=== PATIENT | male | born 1965 | race Hispanic/Latino ===

== ENCOUNTER 2023-02-15 13:27 | Inpatient (IN) | payer OTHER ==
[~2023-02-15] VITALS: Ht 160 cm; Wt 70.6 kg
[2023-02-15] MEDS ORDERED: 0.9%NACL 1000ML 1,000 ML IV ONE ×2 (14:00→15:00)
[2023-02-15] MEDS ORDERED: ONDANSETRON 4MG INJ IVP ONE (14:00)
[2023-02-15 14:06] LABS: BASOPHILS % (AUTO) 0.1 % (0.0-5.0); HEMATOCRIT 49.6 % (42-54); LYMPHOCYTES % (AUTO) 4.5 % (21.0-51.0); MEAN CORPUSCULAR HEMOGLOBIN 30.1 pg (27.0-33.0); MEAN CORPUSCULAR HGB CONC 33.7 g/dL (32.0-36.0); MEAN CORPUSCULAR VOLUME 89.4 fL (79-99); MONOCYTES % (AUTO) 3.3 % (3.0-13.0); NEUTROPHILS % (AUTO) 91.9 % (40.0-77.0); PLATELET COUNT (AUTO) 149 K/uL (130-400); RED BLOOD CELL COUNT(AUTO) 5.55 MIL/uL (4.50-6.20); RED CELL DISTRIBUTION WIDTH 12.6 % (11.0-15.5); WHITE BLOOD COUNT (AUTO) 9.4 K/uL (4.8-10.8)
[2023-02-15 14:23] LABS: CARBON DIOXIDE 30 mmol/L (21-32); CHLORIDE 98 mmol/L (101-111); CREATININE 1.1 mg/dL (0.5-1.5); GLOMERULAR FILTR. RATE CALC 77 mL/min (>90); GLUCOSE,RANDOM 353 mg/dL (70-105); POTASSIUM 4.3 mmol/L (3.5-5.1); SODIUM SERUM 141 mmol/L (136-145); UREA NITROGEN, BLOOD 25 mg/dL (7-18)
[2023-02-15 14:28] LABS: ALANINE AMINOTRANSFERASE 71 U/L (12-78); ALBUMIN 4.4 g/dL (3.5-5.0); ASPARTATE AMINOTRANSFERASE 22 U/L (10-37)
[2023-02-15 14:30] LABS: LIPASE < 50 U/L (114-286)
[2023-02-15 16:38] LABS: AMPHET/METH SCREEN,URINE NEGATIVE (NEGATIVE); BARBITURATE SCREEN, URINE NEGATIVE (NEGATIVE); BENZODIAZEPINES SCREEN,URINE NEGATIVE (NEGATIVE); CANNABINOID SCREEN,URINE NEGATIVE (NEGATIVE); COCAINE SCREEN,URINE POSITIVE (NEGATIVE); OPIATE SCREEN,URINE NEGATIVE (NEGATIVE); PHENCYCLIDINE SCREEN,URINE NEGATIVE (NEGATIVE)
[2023-02-15 16:41] LABS: APPEARANCE,URINE CLEAR (CLEAR); BILIRUBIN,URINE NEGATIVE (NEGATIVE); COLOR,URINE LIGHT-YELLOW (YELLOW); GLUCOSE, URINE (UA) >=1000 mg/dL (NEGATIVE); KETONES,URINE 150 mg/dL (NEGATIVE); LEUKOCYTE ESTERASE ,URINE NEGATIVE Leu/uL (NEGATIVE); NITRATE,URINE NEGATIVE (NEGATIVE); OCCULT BLOOD,URINE NEGATIVE (NEGATIVE); PROTEIN,URINE 10 mg/dL (NEGATIVE); UROBILINOGEN,URINE 0.2 mg/dL (0.2-1.0)
[2023-02-15 16:42] LABS: BACTERIA,URINE RARE /HPF (None Seen); MUCUS,URINE RARE LPF (None Seen); SQUAMOUS EPITHELIAL CELL,UR RARE /HPF (0-2); YEAST,URINE BUDDING RARE /HPF (None Seen)
[2023-02-15] MEDS ORDERED: LABETALOL 20MG VIAL IV ONE (17:00)
[2023-02-15] MEDS ORDERED: ONDANSETRON 4MG INJ IVP PRN (21:30)
[2023-02-15] MEDS ORDERED: MORPHINE 2 MG SYG IVP PRN (21:30)
[2023-02-15] MEDS: 0.9%NACL 1000ML 1,000 ML IV SCH (21:41)
[2023-02-16 02:25] VITALS: BP 178/81
[2023-02-16] MEDS: INSULIN HUMULIN R 100 UNIT/ML 3ML SQ SCH ×4 (05:39→19:55)
[2023-02-16] MEDS: 0.9%NACL 1000ML 1,000 ML IV SCH ×2 (09:12→23:14)
[2023-02-16] MEDS: ACETAMINOPHEN 325 MG TAB PO PRN ×2 (09:36→16:58)
[2023-02-16 12:00] VITALS: BP 159/85
[2023-02-16 15:26] VITALS: BP 157/80
[2023-02-16] MEDS: LISINOPRIL 10 MG TABLET PO SCH (16:58)
[2023-02-16] MEDS: LABETALOL HCL 100 MG TABLET PO SCH (16:58)
[2023-02-16 19:35] VITALS: BP 124/63
[2023-02-16] MEDS: METOCLOPRAMIDE 5 MG TABLET PO SCH (20:40)
[2023-02-16 23:12] VITALS: BP 147/80
[2023-02-17] MEDS: LABETALOL HCL 100 MG TABLET PO SCH ×3 (02:46→20:14)
[2023-02-17 03:33] VITALS: BP 154/74
[2023-02-17 05:29] LABS: HEMOGLOBIN A1C 11.8 % (4.0-6.0)
[2023-02-17] MEDS: INSULIN HUMULIN R 100 UNIT/ML 3ML SQ SCH ×4 (05:56→20:15)
[2023-02-17 08:00] VITALS: BP 164/85
[2023-02-17] MEDS: METOCLOPRAMIDE 5 MG TABLET PO SCH ×3 (09:22→20:14)
[2023-02-17] MEDS ORDERED: ACETAMINOPHEN 325 MG TAB PO PRN (11:00)
[2023-02-17] MEDS ORDERED: MORPHINE 2 MG SYG IVP PRN (11:30)
[2023-02-17 12:00] VITALS: BP 175/90
[2023-02-17] MEDS: LISINOPRIL 10 MG TABLET PO SCH (14:55)
[2023-02-17] MEDS: 0.9%NACL 1000ML 1,000 ML IV SCH (14:55)
[2023-02-17 14:59] VITALS: BP 181/97
[2023-02-17 20:00] VITALS: BP 155/78
[2023-02-17] MEDS ORDERED: LABETALOL HCL 100 MG TABLET PO SCH (21:00)
[2023-02-18] VITALS: BP 101/52
[2023-02-18 03:54] VITALS: BP 134/63
[2023-02-18] MEDS: 0.9%NACL 1000ML 1,000 ML IV SCH ×2 (05:08→16:32)
[2023-02-18 05:46] LABS: ALBUMIN 3.1 g/dL (3.5-5.0); CREATININE 0.6 mg/dL (0.5-1.5); MAGNESIUM 2.1 mg/dL (1.80-2.40); POTASSIUM 3.2 mmol/L (3.5-5.1); TOTAL PROTEIN, SERUM 6.5 g/dL (6.0-8.3)
[2023-02-18] MEDS: INSULIN HUMULIN R 100 UNIT/ML 3ML SQ SCH ×4 (06:23→21:14)
[2023-02-18 06:27] LABS: BASOPHILS % (AUTO) 0.3 % (0.0-5.0); EOSINOPHILS % (AUTO) 0.3 % (0.0-8.0); HEMATOCRIT 40.4 % (42-54); LYMPHOCYTES % (AUTO) 25.3 % (21.0-51.0); MEAN CORPUSCULAR HEMOGLOBIN 30.3 pg (27.0-33.0); MEAN CORPUSCULAR HGB CONC 34.2 g/dL (32.0-36.0); MEAN CORPUSCULAR VOLUME 88.6 fL (79-99); MONOCYTES % (AUTO) 9.5 % (3.0-13.0); NEUTROPHILS % (AUTO) 63.4 % (40.0-77.0); PLATELET COUNT (AUTO) 134 K/uL (130-400); RED BLOOD CELL COUNT(AUTO) 4.56 MIL/uL (4.50-6.20); RED CELL DISTRIBUTION WIDTH 12.3 % (11.0-15.5); WHITE BLOOD COUNT (AUTO) 6.6 K/uL (4.8-10.8)
[2023-02-18] MEDS ORDERED: KCL 20 MEQ ERTAB PO PRN (06:30)
[2023-02-18] MEDS ORDERED: POTASSIUM CHLORIDE 20MEQ/100ML 100 ML IV PRN (06:30)
[2023-02-18] MEDS: POTASSIUM CHLORIDE 10% ELIXIR 20 MEQ/15 ML UDCUP PO PRN ×3 (06:38→16:48)
[2023-02-18 08:00] VITALS: BP 169/88
[2023-02-18] MEDS: LABETALOL HCL 100 MG TABLET PO SCH ×3 (08:35→21:06)
[2023-02-18] MEDS: LISINOPRIL 10 MG TABLET PO SCH (08:36)
[2023-02-18] MEDS: METOCLOPRAMIDE 5 MG TABLET PO SCH ×3 (08:36→21:06)
[2023-02-18] MEDS ORDERED: HONEY 1 APPL/ML TUBE TP SCH (09:00)
[2023-02-18 12:00] VITALS: BP 155/87
[2023-02-18 16:00] VITALS: BP 153/81
[2023-02-18 19:00] VITALS: BP 150/79
[2023-02-19] VITALS (7 sets, daily range): BP systolic 151–178; BP diastolic 78–92
[2023-02-19] MEDS: 0.9%NACL 1000ML 1,000 ML IV SCH ×2 (04:49→18:34)
[2023-02-19] MEDS: INSULIN HUMULIN R 100 UNIT/ML 3ML SQ SCH ×4 (06:24→20:02)
[2023-02-19] MEDS: LISINOPRIL 10 MG TABLET PO SCH (08:57)
[2023-02-19] MEDS: METOCLOPRAMIDE 5 MG TABLET PO SCH ×3 (08:57→20:00)
[2023-02-19] MEDS: LABETALOL HCL 100 MG TABLET PO SCH ×3 (08:57→20:00)
[2023-02-20 03:27] VITALS: BP 150/65
[2023-02-20] MEDS: INSULIN HUMULIN R 100 UNIT/ML 3ML SQ SCH ×4 (05:26→19:35)
[2023-02-20 08:00] VITALS: BP 186/97
[2023-02-20] MEDS: LISINOPRIL 10 MG TABLET PO SCH (10:27)
[2023-02-20] MEDS: LABETALOL HCL 100 MG TABLET PO SCH ×3 (10:28→19:28)
[2023-02-20] MEDS: METOCLOPRAMIDE 5 MG TABLET PO SCH ×3 (10:28→19:28)
[2023-02-20 11:50] VITALS: BP 187/96
[2023-02-20 16:00] VITALS: BP 136/75
[2023-02-20] MEDS: 0.9%NACL 1000ML 1,000 ML IV SCH (19:28)
[2023-02-20 20:00] VITALS: BP 179/89
[2023-02-20 23:33] VITALS: BP 150/75
[2023-02-21 04:00] VITALS: BP 155/70
[2023-02-21] MEDS: INSULIN HUMULIN R 100 UNIT/ML 3ML SQ SCH ×7 (05:56→19:48)
[2023-02-21 08:00] VITALS: BP 184/89
[2023-02-21] MEDS ORDERED: INSULIN GLARGINE 100 UNITS/ML 10 ML VIAL SQ SCH (08:00)
[2023-02-21] MEDS: LABETALOL HCL 100 MG TABLET PO SCH ×3 (08:10→19:47)
[2023-02-21] MEDS: METOCLOPRAMIDE 5 MG TABLET PO SCH ×3 (08:10→19:47)
[2023-02-21 09:44] LABS: ALBUMIN 3.6 g/dL (3.5-5.0); CREATININE 0.6 mg/dL (0.5-1.5); POTASSIUM 4.6 mmol/L (3.5-5.1); TOTAL PROTEIN, SERUM 7.9 g/dL (6.0-8.3)
[2023-02-21] MEDS: 0.9%NACL 1000ML 1,000 ML IV SCH (11:59)
[2023-02-21 12:00] VITALS: BP 162/84
[2023-02-21 16:00] VITALS: BP 152/77
[2023-02-21 19:00] VITALS: BP 168/77
[2023-02-22] VITALS: BP 145/73
[2023-02-22] MEDS: 0.9%NACL 1000ML 1,000 ML IV SCH ×2 (00:10→13:02)
[2023-02-22 04:00] VITALS: BP 157/79
[2023-02-22] MEDS: INSULIN HUMULIN R 100 UNIT/ML 3ML SQ SCH ×7 (05:52→20:55)
[2023-02-22 08:00] VITALS: BP 183/90
[2023-02-22] MEDS: METOCLOPRAMIDE 5 MG TABLET PO SCH ×3 (08:19→20:45)
[2023-02-22] MEDS: LABETALOL HCL 100 MG TABLET PO SCH ×3 (08:20→20:45)
[2023-02-22] MEDS: INSULIN GLARGINE 100 UNITS/ML 10 ML VIAL SQ SCH (08:23)
[2023-02-22 12:00] VITALS: BP 152/81
[2023-02-22 16:00] VITALS: BP 152/75
[2023-02-22 19:00] VITALS: BP 144/85
[2023-02-22] MEDS: LOSARTAN 25 MG TABLET PO SCH (20:45)
[2023-02-23] VITALS: BP 156/75
[2023-02-23] MEDS: 0.9%NACL 1000ML 1,000 ML IV SCH ×2 (02:04→16:10)
[2023-02-23 03:55] VITALS: BP 161/80
[2023-02-23] MEDS: INSULIN HUMULIN R 100 UNIT/ML 3ML SQ SCH ×7 (05:46→20:10)
[2023-02-23 08:00] VITALS: BP 149/84
[2023-02-23] MEDS: METOCLOPRAMIDE 5 MG TABLET PO SCH ×3 (08:06→20:04)
[2023-02-23] MEDS: LOSARTAN 25 MG TABLET PO SCH ×2 (08:06→20:04)
[2023-02-23] MEDS: LABETALOL HCL 100 MG TABLET PO SCH ×3 (08:06→20:04)
[2023-02-23] MEDS: INSULIN GLARGINE 100 UNITS/ML 10 ML VIAL SQ SCH (08:11)
[2023-02-23 12:00] VITALS: BP 121/69
[2023-02-23 16:00] VITALS: BP 139/75
[2023-02-23 19:00] VITALS: BP 158/86
[2023-02-24] VITALS: BP 138/69
[2023-02-24 04:00] VITALS: BP 150/79
[2023-02-24 04:04] LABS: MEAN CORPUSCULAR HGB CONC 33.5 g/dL (32.0-36.0); MEAN CORPUSCULAR VOLUME 89.6 fL (79-99); RED BLOOD CELL COUNT(AUTO) 4.8 MIL/uL (4.50-6.20); RED CELL DISTRIBUTION WIDTH 12.2 % (11.0-15.5)
[2023-02-24 04:17] LABS: ALBUMIN 3.4 g/dL (3.5-5.0); CREATININE 0.7 mg/dL (0.5-1.5); MAGNESIUM 1.8 mg/dL (1.80-2.40); POTASSIUM 4.2 mmol/L (3.5-5.1); TOTAL PROTEIN, SERUM 7.4 g/dL (6.0-8.3)
[2023-02-24] MEDS: 0.9%NACL 1000ML 1,000 ML IV SCH (05:30)
[2023-02-24] MEDS: INSULIN HUMULIN R 100 UNIT/ML 3ML SQ SCH ×6 (06:47→17:08)
[2023-02-24 08:00] VITALS: BP 166/87
[2023-02-24] MEDS: LABETALOL HCL 100 MG TABLET PO SCH ×2 (08:53→14:37)
[2023-02-24] MEDS: LOSARTAN 25 MG TABLET PO SCH (08:53)
[2023-02-24] MEDS: METOCLOPRAMIDE 5 MG TABLET PO SCH ×2 (08:53→14:37)
[2023-02-24] MEDS: INSULIN GLARGINE 100 UNITS/ML 10 ML VIAL SQ SCH (09:00)
[2023-02-24 12:00] VITALS: BP 145/79
[2023-02-24 16:00] VITALS: BP 147/76
== END 2023-02-24 18:50 | disposition home or self-care (01) | DRG 639 ==
LOC: EDH 13:27 → EDHIP 13:28 → 4BH 02-16 01:52
PROVIDERS: ADMIT Internal Medicine Infectious Disease; ATTEND Internal Medicine Infectious Disease
DX: E11.65 Type 2 diabetes mellitus with hyperglycemia (principal); Z20.822 Contact with and (suspected) exposure to COVID-19; E86.0 Dehydration; I10 Essential (primary) hypertension; F14.10 Cocaine abuse, uncomplicated; Z83.3 Family history of diabetes mellitus
CPT/HCPCS: 36415; 78264; 80053; 80305; 81001; 82010; 82948; 83036; 83605; 83690; 83735; 84132; 84484; 85025; 85027; 87635; 87804; 87880; 93005; 97039; A9541; C9803; G0378; J1815; J2405; J3490; J7030